=== PATIENT | female | born 1970 | race Caucasian/White ===

== ENCOUNTER 2018-06-11 21:18 | Emergency (ER) | payer MEDICAID ==
--- NOTE | 2018-06-11 21:41 | ED Physician Documentation ---
PD HPI ABD PAIN - Stated complaint Stated Complaint: ABD/BACK PX - Chief complaint Chief Complaint: UTI - History obtained from History obtained from: Patient - History of Present Illness Timing - onset: How many weeks ago (1) Timing - details: Gradual onset, Waxing and waning Pain level now: 3 Quality: Dull, Pain Location: Other (low back) Radiation: Lower back, Left flank, Other (bilateral lower abdomen), Right flank Worsened by: Other (urinating) Associated symptoms: Nausea, Hematuria. No: Fever, Vomiting, Chest pain Recently seen: Not recently seen Review of Systems Constitutional: reports: Reviewed and negative Cardiac: reports: Reviewed and negative Respiratory: reports: Reviewed and negative GI: reports: Abdominal Pain, Nausea. denies: Vomiting : reports: Dysuria, Frequency, Hematuria Musculoskeletal: reports: Back pain PD PAST MEDICAL HISTORY - Past Medical History Cardiovascular: None Endocrine/Autoimmune: None - Past Surgical History Past Surgical History: No - Present Medications Home Medications: Ambulatory Orders Medication Instructions Recorded Confirmed Cefdinir 300 mg PO BID #14 capsule 06/11/18 - Allergies Allergies/Adverse Reactions: Allergies Allergy/AdvReac Type Severity Reaction Status Date / Time No Known Drug Allergies Allergy Verified 06/11/18 22:00 - Social History Does the pt smoke?: Yes Smoking Status: Current every day smoker Does the pt drink ETOH?: No Does the pt have substance abuse?: Yes PD ED PE NORMAL - Vitals Vital signs reviewed: Yes - General General: Alert and oriented X 3, No acute distress, Well developed/nourished - Cardiac Cardiac: No murmur - Respiratory Respiratory: No respiratory distress, Clear bilaterally - Abdomen Abdomen: Soft, Non tender - Back Back: Other (moderate left CVA tenderness) - Derm Derm: No rash Results - Vitals Vitals: Oxygen O2 Source Room air - Labs Labs: Laboratory Tests 06/11/18 06/11/18 06/11/18 21:35 21:35 22:10 WBC 6.3 RBC 4.46 Hgb 13.2 Hct 39.2 MCV 87.8 MCH 29.6 MCHC 33.7 RDW 13.9 Plt Count 410 MPV 5.4 L Neut # (Auto) 3.3 Lymph # (Auto) 2.3 [place] # (Auto) 0.5 Eos # (Auto) 0.1 Baso # (Auto) 0.0 Absolute Nucleated RBC 0.01 Nucleated RBC % 0.1 Sodium Potassium Chloride Carbon Dioxide Anion Gap BUN Creatinine Estimated GFR (MDRD) Glucose Calcium Total Bilirubin AST ALT Alkaline Phosphatase Total Protein Albumin Globulin Albumin/Globulin Ratio Lipase Urine Color YELLOW Urine Clarity CLEAR Urine pH 5.5 Ur Specific [place] 1.020 1.020 Urine Protein NEGATIVE Urine Glucose (UA) NEGATIVE Urine Ketones NEGATIVE Urine Occult Blood NEGATIVE Urine Nitrite NEGATIVE Urine Bilirubin NEGATIVE Urine Urobilinogen 0.2 (NORMAL) Ur Leukocyte Esterase SMALL H Urine RBC None Seen Urine WBC >25 H Urine WBC Clumps PRESENT Ur Squamous Epith Cells FEW Squamous Urine Bacteria None Seen Ur Microscopic Review INDICATED Urine Culture Comments INDICATED Urine HCG, Qual NEGATIVE 06/11/18 22:10 WBC RBC Hgb Hct MCV MCH MCHC RDW Plt Count MPV Neut # (Auto) Lymph # (Auto) [place] # (Auto) Eos # (Auto) Baso # (Auto) Absolute Nucleated RBC Nucleated RBC % Sodium 138 Potassium 3.8 Chloride 98 L Carbon Dioxide 29 Anion Gap 11.0 BUN 17 Creatinine 0.9 Estimated GFR (MDRD) 67 L Glucose 98 Calcium 8.8 Total Bilirubin 0.7 AST 17 ALT 13 Alkaline Phosphatase 75 Total Protein 7.6 Albumin 3.9 Globulin 3.7 Albumin/Globulin Ratio 1.1 Lipase 29 Urine Color Urine Clarity Urine pH Ur Specific [place] Urine Protein Urine Glucose (UA) Urine Ketones Urine Occult Blood Urine Nitrite Urine Bilirubin Urine Urobilinogen Ur Leukocyte Esterase Urine RBC Urine WBC Urine WBC Clumps Ur Squamous Epith Cells Urine Bacteria Ur Microscopic Review Urine Culture Comments Urine HCG, Qual PD MEDICAL DECISION MAKING - ED course Complexity details: reviewed results, re-evaluated patient, considered differential, d/w patient Departure - Departure Disposition: Home, Self Care Clinical Impression: Pyelonephritis Condition: Good Instructions: ED Kidney Infec Female Follow-Up: [facility] [Provider Group] [facility] [Provider Group] Prescriptions: Cefdinir 300 mg PO BID #14 capsule Discharge Date/Time: 06/11/18 23:44
[2018-06-11] MEDS ORDERED: KETOROLAC 60 MG/2 ML VIAL IVP STA (21:59)
[2018-06-11 22:06] LABS: BILIRUBIN,URINE NEGATIVE (NEGATIVE); GLUCOSE, URINE (UA) NEGATIVE (NEGATIVE); KETONES,URINE (UA) NEGATIVE (NEGATIVE); LEUKOCYTE ESTERASE, URINE SMALL (NEGATIVE); NITRITE,URINE NEGATIVE (NEGATIVE); OCCULT BLOOD,URINE NEGATIVE (NEGATIVE); PH,URINE 5.5 PH (5.0-7.5); PROTEIN,URINE NEGATIVE (NEGATIVE); UROBILINOGEN,URINE 0.2 (NORMAL) E.U./dL (NORMAL)
[2018-06-11 22:07] LABS: CLARITY,URINE CLEAR (CLEAR)
[2018-06-11 22:10] LABS: HCG UR QUAL NEGATIVE
[2018-06-11 22:16] LABS: BACTERIA,URINE None Seen /HPF (None Seen); RBC,URINE None Seen /HPF (0-5); SQUAMOUS EPITHELIAL CELL,UR FEW Squamous (<= Few); WBC CLUMPS,URINE PRESENT
[2018-06-11 22:18] LABS: BASOPHILS % (AUTO) 0.4 %; EOSINOPHILS # (AUTO) 0.1 10^3/uL (0.0-0.7); EOSINOPHILS % (AUTO) 1.9 %; HGB - HEMOGLOBIN 13.2 g/dL (12.0-16.0); LYMPHOCYTES # (AUTO) 2.3 10^3/uL (1.5-3.5); LYMPHOCYTES % (AUTO) 36.6 %; MEAN CORPUSCULAR HEMOGLOBIN 29.6 pg (27.0-31.0); MEAN CORPUSCULAR HGB CONC 33.7 g/dL (32.0-36.0); MEAN CORPUSCULAR VOLUME 87.8 fL (81.0-99.0); MEAN PLATELET VOLUME 5.4 fL (7.9-10.8); MONOCYTES # (AUTO) 0.5 10^3/uL (0.0-1.0); MONOCYTES % (AUTO) 8.6 %; NEUTROPHILS # (AUTO) 3.3 10^3/uL (1.5-6.6); NEUTROPHILS % (AUTO) 52.5 %; PLT - PLATELET COUNT 410 10^3/uL (130-450); RED BLOOD COUNT 4.46 10^6/uL (4.20-5.40); RED CELL DISTRIBUTION WIDTH 13.9 % (12.0-15.0); WHITE BLOOD COUNT 6.3 x10^3/uL (4.8-10.8)
[2018-06-11 22:32] LABS: ALBUMIN 3.9 g/dL (3.2-5.5); ALBUMIN/GLOBULIN RATIO 1.1 (1.0-2.2); BILIRUBIN,TOTAL 0.7 mg/dL (0.2-1.0); CALCIUM 8.8 mg/dL (8.5-10.3); CREATININE 0.9 mg/dL (0.4-1.0); TOTAL PROTEIN 7.6 g/dL (6.7-8.2)
[2018-06-11] MEDS ORDERED: cefTRIAXone 1 GM VIAL IVP STA (23:17)
[2018-06-11 23:42] VITALS: BP 118/83
== END 2018-06-11 23:44 | disposition home or self-care (01) ==
LOC: ED 21:18
DX: N12 Tubulo-interstitial nephritis, not specified as acute or chronic (principal); F17.200 Nicotine dependence, unspecified, uncomplicated
CPT/HCPCS: 36415; 80053; 81001; 81003; 81025; 83690; 85025; 87086; 96374; 96375; 99283; 99284

== ENCOUNTER 2020-12-28 05:47 | Emergency (ER) | payer SELFPAY ==
[2020-12-28] MEDS ORDERED: BUFFERED LIDOCAINE 10 ML SYRINGE SUBQ STA (06:12)
[2020-12-28] MEDS ORDERED: LIDOCAINE-EPINEPH-TETRACAINE 3 ML SYRINGE TOP STA (06:12)
[2020-12-28] MEDS ORDERED: ceFAZolin 1 GM VIAL IM STA (06:12)
[2020-12-28] MEDS ORDERED: SULFAMETH/TRIMETH DS 800/160 MG TABLET PO STA (06:12)
--- NOTE | 2020-12-28 06:13 | ED Physician Documentation ---
PD HPI WOUND RECHECK - Stated complaint Stated Complaint: L LEG SPIDER BITE - Chief complaint Chief Complaint: Wound - Histroy obtained from History obtained from: Patient - Additional information Additional information: Cleaning a shed about 3 days ago and thinks she got bitten by a spider. Has had progressive swelling, redness and pain to the right hardin. No fevers though. Pain is tolerable at this point and declines pain medication on initial evaluation. 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 Medications Home Medications: Ambulatory Orders Medication Instructions Recorded Confirmed HYDROcod/ACETAM 5/325 [[place] 5/325] 1 - 2 tab PO Q6H PRN #10 tablet 12/28/20 Sulfamethox/Trimeth 800/160 1 each PO BID #14 tablet 12/28/20 [Bactrim Ds 800/160] cephALEXin [Keflex] 500 mg PO Q6H #28 cap 12/28/20 - Allergies Allergies/Adverse Reactions: Allergies Allergy/AdvReac Type Severity Reaction Status Date / Time No Known Drug Allergies Allergy Verified 06/11/18 22:00 - Social History Does the pt smoke?: Yes Smoking Status: Current every day smoker Does the pt drink ETOH?: No Does the pt have substance abuse?: Yes - Immunizations Immunizations are current?: No Immunizations: TDAP >10years/unknown - POLST Patient has POLST: No PD ED PE NORMAL - Vitals Vital signs reviewed: Yes - General General: Alert and oriented X 3, No acute distress - Extremities Extremities: Other (To the right anterior upper hardin there is a small wound measuring about 3 mm in diameter with significant cellulitis from just below the tibial plateau down to the ankle. Bedside ultrasound demonstrates a very small fluid collection under the wound.) - Neuro Neuro: Alert and oriented X 3, Normal speech Results - Vitals Vitals: Vital Signs - 24 hr 12/28/20 12/28/20 05:52 05:55 Temperature 36.4 C L 36.4 C L Heart Rate 107 H 107 H Respiratory 20 20 Rate Blood Pressure 117/82 H 117/82 H O2 Saturation 94 94 Oxygen O2 Source Room air Procedures - Abscess I&D (location) L leg Preparation: Confirmed with ultrasound, Chlorhexadine, Lidocaine 1%, LET Incision: Incised with scalpel, Purulent drainage, Culture obtained. No: Packed (too small) Other: Pt tolerated well PD MEDICAL DECISION MAKING - ED course ED course: I am prescribing a short course of short-acting opioid pain medication for this patient. I have reviewed the patients MANAGER SHIFT and no concerning findings were noted. I have discussed that the opioids are for short term therapy only, and will not be refilled from the ED. Departure - Departure Disposition: 01 Home, Self Care Clinical Impression: Abscess, Cellulitis Condition: Good Record reviewed to determine appropriate education?: Yes Instructions: Cellulitis Dc Prescriptions: Sulfamethox/Trimeth 800/160 [Bactrim Ds 800/160] 1 each PO BID #14 tablet cephALEXin [Keflex] 500 mg PO Q6H #28 cap HYDROcod/ACETAM 5/325 [[place] 5/325] 1 - 2 tab PO Q6H PRN #10 tablet PRN Reason: Pain Comments: Return on Saturday for wound check and culture review. Sooner if worsening or if you develop a fever or other new or worsening symptoms. Elevate the leg. We are performing a wound culture, the results should be done in 48-72 hours. If antibiotic change is necessary we will call you. Return if worse in the meantime, especially if you develop increased pain, fevers, cannot keep down the medication. Otherwise follow-up with your physician in approximately 2-3 days. I am prescribing a short course of narcotic pain medication for you. These are potentially dangerous and addictive medications that should be used carefully. These medications may constipate you. Take an scqa-qph-xyyrjif stool softener (docusate) twice daily with plenty of water while taking these medications. If you go 24 hours without a bowel movement, take [id number] miralax, per package instructions. Do not drink or drive while taking these medications. If you received narcotic or sedating medications while in the emergency department, do not drive for 24 hours. Store this medication in a safe, secure place and out of reach of children. It is a violation of federal law to give or sell this medication to another person or to use in a manner other than prescribed. The ED will not refill narcotic prescriptions, including prescriptions lost or stolen. To dispose of unwanted medications: 1. [facility] at [address] in [place] has a medication drop box. They accept prescription medications (in pill form) Saturday through Saturday 9:00 a.m. to 5:00 p.m. 2. [facility] accepts prescription medications (in pill form only) for disposal year round. Call for more information. 3. Contact the [facility] for the next [facility] sponsored prescription drug collection event. , [phone], or [phone]; Note that many narcotic pain relievers also contain Tylenol/acetaminophen. Please ensure that your total dose of acetaminophen from all sources does not exceed 3 g (3000 mg) per day.
[2020-12-28] MEDS ORDERED: HYDROcod/ACETAM 5/325 MG TABLET PO STA (06:32)
[2020-12-28 06:52] VITALS: BP 116/81
== END 2020-12-28 06:51 | disposition home or self-care (01) ==
LOC: ED 05:47
DX: L03.115 Cellulitis of right lower limb (principal); W57.XXXA Bitten or stung by nonvenomous insect and other nonvenomous arthropods, initial encounter; Y93.H9 Activity, other involving exterior property and land maintenance, building and construction; F17.200 Nicotine dependence, unspecified, uncomplicated
CPT/HCPCS: 10060; 87070; 87205; 96372; 99283; A9270; 87181

== ENCOUNTER 2021-08-26 19:01 | Outpatient (CLI) | payer SELFPAY | END 2021-08-26 19:02 | disposition critical access hospital (66) | LOC: EMS 19:01 | DX: R05.9 Cough, unspecified (principal); R06.02 Shortness of breath | CPT/HCPCS: A0425; A0429 ==

== ENCOUNTER 2021-08-26 19:19 | Emergency (ER) | payer SELFPAY ==
--- NOTE | 2021-08-26 19:56 | ED Physician Documentation ---
PD HPI DYSPNEA - Stated complaint Stated Complaint: SOA/COUGH - Chief complaint Chief Complaint: Resp - History obtained from History obtained from: Patient - Additional information Additional information: 51yo female with SOA and cough x 5-6 days. Associated with CP with cough and deep breathing. Cough productive of white thick sputum. Has fatigue and body aches. Unvaccinated for COVID. No pedal edema. Feels presyncopal with standing. Quit smoking 5 days ago. 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 - Present Medications Home Medications: Ambulatory Orders Medication Instructions Recorded Confirmed HYDROcod/ACETAM 5/325 [[place] 5/325] 1 - 2 tab PO Q6H PRN #10 tablet 12/28/20 Sulfamethox/Trimeth 800/160 1 each PO BID #14 tablet 12/28/20 [Bactrim Ds 800/160] cephALEXin [Keflex] 500 mg PO Q6H #28 cap 12/28/20 Ibuprofen [Motrin] 600 mg PO Q6H PRN #20 tab 08/26/21 guaiFENesin/CODEINE [Robitussin AC] 5 - 10 ml PO Q6H PRN #120 ml 08/26/21 - Allergies Allergies/Adverse Reactions: Allergies Allergy/AdvReac Type Severity Reaction Status Date / Time No Known Drug Allergies Allergy Verified 08/26/21 19:31 - Social History Does the pt smoke?: Yes Smoking Status: Current every day smoker Does the pt drink ETOH?: No Does the pt have substance abuse?: Yes - Immunizations Immunizations are current?: No Immunizations: TDAP >10years/unknown - POLST Patient has POLST: No PD ED PE NORMAL - Vitals Vital signs reviewed: Yes - General General: Alert and oriented X 3, No acute distress, Well developed/nourished - Cardiac Cardiac: RRR, No murmur - Respiratory Respiratory: No respiratory distress, Other (Scattered rhonchi.) - Abdomen Abdomen: Normal bowel sounds, Soft, Non tender - Back Back: No CVA TTP, No spinal TTP - Derm Derm: Normal color, Warm and dry - Extremities Extremities: No edema, No calf tenderness / cord - Neuro Neuro: Alert and oriented X 3, Normal speech Results - Vitals Vitals: Vital Signs - 24 hr 08/26/21 08/26/21 08/26/21 19:31 19:32 21:28 Temperature 36.6 C 36.6 C 36.6 C Heart Rate 88 88 86 Respiratory 30 H 30 H 20 Rate Blood Pressure 92/74 92/74 110/70 O2 Saturation 100 100 100 Oxygen O2 Source Room air - Labs Labs: Laboratory Tests 08/26/21 08/26/21 20:12 20:12 WBC 5.1 RBC 4.85 Hgb 14.1 Hct 43.0 MCV 88.7 MCH 29.1 MCHC 32.8 RDW 13.2 Plt Count 218 MPV 8.4 Neut # (Auto) 3.1 Lymph # (Auto) 1.6 [place] # (Auto) 0.4 Eos # (Auto) 0.0 Baso # (Auto) 0.0 Absolute Nucleated RBC 0.00 Band Neuts % (Manual) Not Reportable Abnorm Lymph % (Manual) Not Reportable Nucleated RBC % 0.0 Neutrophils # (Manual) Not Reportable Lymphocytes # (Manual) Not Reportable Monocytes # (Manual) Not Reportable Eosinophils # (Manual) Not Reportable Basophils # (Manual) Not Reportable Differential Comment MANUAL=AUTO DIFF Manual Slide Review Indicated Platelet Estimate NORMAL (130-450,000) Platelet Morphology NORMAL APPEARANCE RBC Morph Micro Appear NORMAL APPEARANCE Sodium 134 L Potassium 4.4 Chloride 96 L Carbon Dioxide 29 Anion Gap 9.0 BUN 24 H Creatinine 0.9 Estimated GFR (MDRD) 65 L Glucose 113 H Calcium 8.4 L - Rads (name of study) Single view chest x-ray is unremarkable Radiology: EMP read contemporaneously PD MEDICAL DECISION MAKING - ED course ED course: 51yo woman with viral sydnroma. Clear CXR, nl WBC. Covid pending. Discussed quarantine and return precautions. Departure - Departure Disposition: 01 Home, Self Care Clinical Impression: Viral syndrome Condition: Good Record reviewed to determine appropriate education?: Yes Instructions: ED Viral Syndrome Prescriptions: Ibuprofen [Motrin] 600 mg PO Q6H PRN #20 tab PRN Reason: Pain guaiFENesin/CODEINE [Robitussin AC] 5 - 10 ml PO Q6H PRN #120 ml PRN Reason: Cough Comments: Chest x-ray looks okay. Labs consistent with dehydration but otherwise unremarkable. No evidence of a bacterial infection. I sent your prescriptions electronically to [facility] in [place]. You have a Covid test pending. You need to self quarantine until the result is done and negative. Do not leave your house. Do not get near anybody. The results should be done in 48 to 72 hours. We will call with a positive result, the fastest way to get a negative result for confirmation though is to go to the hospital website at [email or web address], click on the my [facility] tab and sign up for the patient portal. If any friends or family get sick and would like to have a Covid test done, but do not have signs or symptoms that would necessitate being hospitalized, there are multiple local options for Covid testing. [facility] keeps an updated list of testing and vaccination options at: [email or web address].
[2021-08-26] MEDS ORDERED: SODIUM CHLORIDE 0.9% 1,000 ML IV STA (19:59)
[2021-08-26] MEDS ORDERED: IBUPROFEN 400 MG TABLET PO STA (20:04)
[2021-08-26] MEDS ORDERED: guaiFENesin/CODEINE 5 ML UDC PO STA (20:04)
[2021-08-26 20:19] LABS: BASOPHILS % (AUTO) 0.2 %; EOSINOPHILS % (AUTO) 0.2 %; RED CELL DISTRIBUTION WIDTH 13.2 % (12.0-15.0)
[2021-08-26 20:29] LABS: CALCIUM 8.4 mg/dL (8.5-10.3); CREATININE 0.9 mg/dL (0.4-1.0); POTASSIUM 4.4 mmol/L (3.5-5.0)
[2021-08-26 20:36] LABS: HGB - HEMOGLOBIN 14.1 g/dL (12.0-16.0); LYMPHOCYTES # (AUTO) 1.6 10^3/uL (1.5-3.5); LYMPHOCYTES % (AUTO) 31.4 %; MEAN CORPUSCULAR HEMOGLOBIN 29.1 pg (27.0-31.0); MEAN CORPUSCULAR HGB CONC 32.8 g/dL (32.0-36.0); MEAN CORPUSCULAR VOLUME 88.7 fL (81.0-99.0); MEAN PLATELET VOLUME 8.4 fL (7.9-10.8); MONOCYTES # (AUTO) 0.4 10^3/uL (0.0-1.0); MONOCYTES % (AUTO) 7.6 %; NEUTROPHILS # (AUTO) 3.1 10^3/uL (1.5-6.6); NEUTROPHILS % (AUTO) 60.2 %; PLT - PLATELET COUNT 218 10^3/uL (130-450); RED BLOOD COUNT 4.85 10^6/uL (4.20-5.40); WHITE BLOOD COUNT 5.1 x10^3/uL (4.8-10.8)
[2021-08-26 20:40] LABS: SLIDE REVIEW? Indicated
--- NOTE | 2021-08-26 20:44 | XRAY Report ---
PROCEDURE: Chest 1 View X-Ray INDICATIONS: dyspnea TECHNIQUE: One view of the chest was acquired. COMPARISON: None. FINDINGS: Surgical changes and devices: None. Lungs and pleura: No pleural effusions or pneumothorax. Lungs are clear. Mediastinum: Mediastinal contours appear normal. Heart size is normal. Bones and chest wall: No suspicious bony lesions. Overlying soft tissues appear unremarkable. IMPRESSION: Chest without acute cardiopulmonary abnormalities or focal airspace disease. Reviewed by: Armond Martines MD on 08/26/2021 8:42 PM [facility] Approved by: Armond Martines MD on 08/26/2021 8:42 PM [facility] Station ID: [id number]
[2021-08-26 20:55] LABS: DIFFERENTIAL COMMENT MANUAL=AUTO DIFF; PLATELET ESTIMATE, MANUAL NORMAL (130-450,000) (NORMAL); PLATELET MORPHOLOGY NORMAL APPEARANCE (NORMAL); RBC MORPHOLOGY (MULTIPLE) NORMAL APPEARANCE (NORMAL)
[2021-08-27 01:17] VITALS: BP 95/74
== END 2021-08-27 | disposition home or self-care (01) ==
LOC: EDUNIT# → ED 19:19
DX: U07.1 COVID-19 (principal); R07.9 Chest pain, unspecified; E86.0 Dehydration; F17.200 Nicotine dependence, unspecified, uncomplicated
CPT/HCPCS: 36415; 71045; 80048; 85025; 87635; 99282; 99284; A9270

== ENCOUNTER 2021-09-01 06:41 | Emergency (ER) | payer SELFPAY ==
[2021-09-01] MEDS ORDERED: DEXAMETHASONE 10 MG/ML VIAL PO STA (07:35)
[2021-09-01] MEDS ORDERED: CHERRY SYRUP 10 ML UDC PO ONE (07:35)
[2021-09-01] MEDS ORDERED: PENICILLIN VK 250 MG TABLET PO STA (07:35)
--- NOTE | 2021-09-01 07:37 | ED Physician Documentation ---
History of Present Illness - Stated complaint Stated Complaint: FACE SWELLING/PX - Chief complaint Chief Complaint: Heent - History obtained from History obtained from: Patient - History of Present Illness Pain level max: 7 Pain level now: 6 - Additonal information Additional information: Patient is a 51-year-old female who presents to the emergency department with a right upper dental pain and right-sided facial swelling. She states this started a few days ago and is continued to worsen since that time. She states that she went to try to see her dentist but the office was closed. No fevers. No chills. She did recently test positive for COVID. 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 - Present Medications Home Medications: Ambulatory Orders Medication Instructions Recorded Confirmed Penicillin V Potassium 500 mg PO Q6HR #40 tablet 09/01/21 - Allergies Allergies/Adverse Reactions: Allergies Allergy/AdvReac Type Severity Reaction Status Date / Time No Known Drug Allergies Allergy Verified 09/01/21 07:21 - Social History Does the pt smoke?: Yes Smoking Status: Current every day smoker Does the pt drink ETOH?: No Does the pt have substance abuse?: Yes - Immunizations Immunizations are current?: Yes Immunizations: TDAP >10years/unknown - POLST Patient has POLST: No PD ED PE NORMAL - Vitals Vital signs reviewed: Yes - General General: Alert and oriented X 3, No acute distress - HEENT HEENT: Moist mucous membranes, Other (Very poor dentition throughout. There is right sided gingival swelling, no fluctuance or drainable abscess. Normal phonation. No trismus.) - Neck Neck: Supple, no meningeal sign - Cardiac Cardiac: RRR, No murmur - Respiratory Respiratory: No respiratory distress, Clear bilaterally - Derm Derm: Warm and dry - Neuro Neuro: Alert and oriented X 3 - Psych Psych: Normal mood, Normal affect Results - Vitals Vitals: Vital Signs - 24 hr 09/01/21 07:00 Temperature 36.7 C Heart Rate 85 Respiratory 16 Rate Blood Pressure 118/89 H O2 Saturation 100 Oxygen O2 Source Room air PD MEDICAL DECISION MAKING - ED course Complexity details: considered differential, d/w patient ED course: Patient with dental caries, dental pain and swelling at the gumline. There is no drainable abscess at this time. We will place her on antibiotics and have her follow-up closely with her dentist for further care. Patient counseled regarding signs and symptoms for which I believe and urgent re-evaluation would be necessary. Patient with good understanding of and agreement to plan and is comfortable going home at this time This document was made in part using voice recognition software. While efforts are made to proofread this document, sound alike and grammatical errors may occur. Departure - Departure Disposition: 01 Home, Self Care Clinical Impression: Dental caries Condition: Good Instructions: ED Cavity Dental Follow-Up: your,dentist this week [Other] Prescriptions: Penicillin V Potassium 500 mg PO Q6HR #40 tablet Comments: Your prescriptions were sent to [facility] in [place]. Please follow-up with your dentist this week for further care of your tooth. Return if you worsen.
[2021-09-01 07:56] VITALS: BP 122/86
== END 2021-09-01 07:55 | disposition home or self-care (01) ==
LOC: ED 06:41
DX: K02.9 Dental caries, unspecified (principal); F17.200 Nicotine dependence, unspecified, uncomplicated
CPT/HCPCS: 99282; A9270

== ENCOUNTER 2021-12-25 19:08 | Emergency (ER) | payer SELFPAY ==
[2021-12-25] MEDS ORDERED: LIDOCAINE PATCH 5% TOP STA (19:38)
--- NOTE | 2021-12-25 20:06 | ED Physician Documentation ---
PD HPI UPPER EXT INJURY - Stated complaint Stated Complaint: L SHOULDER PX - Chief complaint Chief Complaint: Ext Problem - History obtained from History obtained from: Patient - Additonal information Additional information: Patient is a 51-year-old female with no significant past medical history presenting for evaluation of left shoulder pain that has been present since she woke up this morning. Patient was lifting and moving around things in her home yesterday including furniture. She did left up a couch and had it propped up partly with her left shoulder in order to remove some cords that were tangled underneath it. She did not notice any pain yesterday. She denies falls or other injuries. However since waking up this morning she has had steady pain to the left shoulder joint that is worse with certain movements. She did take Aleve which did help with the pain. The pain does not radiate. It is not worse with other activities other than with movement of the joint. She denies pr evious injuries to this site.The pain feels sharp. She denies numbness. She denies chest pain, Back pain or difficulty breathing. Review of Systems Constitutional: denies: Fever Nose: denies: Congestion Cardiac: denies: Chest pain / pressure Respiratory: denies: Dyspnea, Cough GI: denies: Abdominal Pain, Vomiting : denies: Dysuria Skin: denies: Rash Musculoskeletal: reports: Joint pain. 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 - Present Medications Home Medications: Ambulatory Orders Medication Instructions Recorded Confirmed Lidocaine Patch 5% [Lidoderm Patch] 1 patch TOP DAILY PRN #10 patch 12/25/21 Naproxen 250 - 500 mg PO BID PRN #30 tablet 12/25/21 - Allergies Allergies/Adverse Reactions: Allergies Allergy/AdvReac Type Severity Reaction Status Date / Time No Known Drug Allergies Allergy Verified 12/25/21 19:12 - Social History Does the pt smoke?: Yes Smoking Status: Current every day smoker Does the pt drink ETOH?: No Does the pt have substance abuse?: Yes - Immunizations Immunizations are current?: Yes Immunizations: TDAP >10years/unknown - POLST Patient has POLST: No PD ED PE NORMAL - General General: Alert and oriented X 3, No acute distress, Well developed/nourished - HEENT HEENT: Atraumatic - Neck Neck: Supple, no meningeal sign, No bony TTP - Cardiac Cardiac: RRR, No murmur, Strong equal pulses - Respiratory Respiratory: No respiratory distress, Clear bilaterally - Back Back: No spinal TTP - Extremities Extremities: No deformity, No tenderness to palpate, No edema, Other (No bony tenderness or deformities noted, no tenderness over clavicle, patient has pain with abduction,Internal and external rotation, Flexion at left shoulder, normal range of motion at left elbow, strong radial pulse, normal sensation, 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 No: Normal ROM s pain - Neuro Neuro: No motor deficit, No sensory deficit - Psych Psych: Normal mood Results - Vitals Vitals: Vital Signs - 24 hr 12/25/21 12/25/21 19:12 21:01 Temperature 36.5 C 36.2 C L Heart Rate 80 77 Respiratory 16 16 Rate Blood Pressure 144/87 H 142/80 H O2 Saturation 100 99 Oxygen O2 Source Room air PD MEDICAL DECISION MAKING - ED course Complexity details: reviewed results, re-evaluated patient, d/w patient ED course: Patient presenting for evaluation of left shoulder pain after repetitive use and strain injury yesterday. On exam she has no bony tenderness but does have pain with range of motion. Do not think her pain is related to a cardiac Cause or dissection.X-ray was obtained which shows no fracture dislocation but does demonstrate calcific tendinitis. Reviewed these findings with the patient and discussed treatment plan. Patient is counseled on need for follow-up with primary care doctor or orthopedic doctor if pain does not improve. She is also aware of return precautions.Patient did to have pain relief with Aleve she had taken prior to arrival as well as with lidocaine patch. Departure - Departure Disposition: 01 Home, Self Care Clinical Impression: Calcific tendinitis of left shoulder Left shoulder pain Qualifiers: Chronicity: acute Qualified Code(s): M25.512 - Pain in left shoulder Condition: Stable Instructions: Rotator Cuff Injury, ED Tendinitis Calcific Prescriptions: Lidocaine Patch 5% [Lidoderm Patch] 1 patch TOP DAILY PRN #10 patch PRN Reason: pain Naproxen 250 - 500 mg PO BID PRN #30 tablet PRN Reason: Pain Comments: Flores - You were evaluated for pain to your left shoulder. An x-ray was done and does not show a broken bone or a dislocated bone. However there are signs of tendinitis to the rotator cuff Which is likely the source of your pain. A sling was given to you to help provide some support and ease the pain tonight. However tomorrow you should make sure to remove the sling and do frequent range of motion exercises to prevent a frozen shoulder. Please also use ice or heat as needed. You should also use anti-inflammatory medications like Aleve or ibuprofen or Tylenol. I have also sent a prescription for lidocaine patches to the [facility] in [place]. If the pain is not improving in 5 to 7 days, please follow-up with your primary care doctor or an orthopedic surgeon. If you develop pain in a new location or with any worsening symptoms please return to the emergency department. Discharge Date/Time: 12/25/21 21:08
--- NOTE | 2021-12-25 20:26 | XRAY Report ---
PROCEDURE: Shoulder 3 View LT INDICATIONS: pain TECHNIQUE: 3 views of the shoulder were acquired. COMPARISON: None. FINDINGS: Bones: No fractures or dislocations. No suspicious bony lesions. Visualized ribs appear intact. Soft tissues: There is opacification along the superior rotator cuff distally consistent with calcifi c tendinitis IMPRESSION: 1. Calcific tendinitis of the superior rotator cuff. Reviewed by: Farnky Perez MD on 12/25/2021 8:25 PM PDT Approved by: Franky Perez MD on 12/25/2021 8:25 PM PDT Station ID: [id number]
[2021-12-25 21:02] VITALS: BP 142/80
== END 2021-12-25 21:08 | disposition home or self-care (01) ==
LOC: ED 19:08
DX: M75.32 Calcific tendinitis of left shoulder (principal); F17.200 Nicotine dependence, unspecified, uncomplicated
CPT/HCPCS: 73030; 99283; 99284; A9270